=== PATIENT | female | born 1950 | race Caucasian/White ===

== ENCOUNTER 2017-05-29 15:03 | Outpatient (CLI) | payer MEDICARE | END 2017-05-29 15:04 | disposition critical access hospital (66) | LOC: EMS 15:03 | PROVIDERS: ATTEND Surgery | DX: M25.511 Pain in right shoulder (principal); V98.8XXA Other specified transport accidents, initial encounter; Y93.89 Activity, other specified | CPT/HCPCS: A0425; A0429 ==

== ENCOUNTER 2017-05-29 15:36 | Emergency (ER) | payer MEDICARE ==
--- NOTE | 2017-05-29 16:18 | ED Physician Documentation ---
PD HPI UPPER EXT INJURY - Stated complaint Stated Complaint: FALL - Chief complaint Chief Complaint: Ext Problem - History obtained from History obtained from: Patient - History of Present Illness Location: Right, Shoulder Type of injury: Fall (she fell from horse-drawn buggy onto right shoulder.) Timing - onset: Today ([employer]) Timing - details: Abrupt onset, Still present Improved by: Rest Worsened by: Moving, Palpating Review of Systems Cardiac: denies: Chest pain / pressure, Palpitations Respiratory: denies: Dyspnea, Cough GI: denies: Abdominal Pain, Nausea, Vomiting Neurologic: denies: Focal weakness, Numbness, Headache, Head injury PD PAST MEDICAL HISTORY - Past Medical History Musculoskeletal: None - Present Medications Home Medications: Ambulatory Orders Medication Instructions Recorded Confirmed HYDROcod/ACETAM 5/325 [Celina 5/325] 1 tab PO Q6H PRN #25 tablet 05/29/17 Methocarbamol [Robaxin] 500 mg PO Q6H PRN #25 tablet 05/29/17 Naproxen 375 mg PO BID #20 tablet 05/29/17 Ondansetron HCl [Zofran] 4 mg PO Q6H PRN #20 tablet 05/29/17 - Allergies Allergies/Adverse Reactions: Allergies Allergy/AdvReac Type Severity Reaction Status Date / Time Penicillins Allergy Unknown Verified 05/29/17 15:44 PD ED PE NORMAL - Vitals Vital signs reviewed: Yes - General General: Alert and oriented X 3, Well developed/nourished, Other (guarding motion of right arm) - HEENT HEENT: Atraumatic, Pharynx benign - Neck Neck: Supple, no meningeal sign, No bony TTP, No adenopathy - Cardiac Cardiac: RRR, No murmur - Respiratory Respiratory: Clear bilaterally, Other (no chestwall tenderness) - Abdomen Abdomen: Soft, Non tender - Back Back: No CVA TTP, No spinal TTP - Derm Derm: Normal color, Warm and dry - Extremities Extremities: No edema, No calf tenderness / cord, Other (right proximal humerus with swelling and pain on slight ROM. Rest of extremities normal. ) - Neuro Neuro: Alert and oriented X 3, cork wirer 2-12 intact, No motor deficit, No sensory deficit, Normal speech Results - Vitals Vitals: Oxygen O2 Source Room air - Rads (name of study) shoulder Radiology: Prelim report reviewed (proximal humerus fracture with angulation and some displacement. Tubercle fractured too. No dislocation.) PD MEDICAL DECISION MAKING - ED course Complexity details: reviewed results (proximal humerus fracture), considered differential, d/w patient Departure - Departure Disposition: 01 Home, Self Care Clinical Impression: Fall, accidental Qualifiers: Encounter type: initial encounter Qualified Code(s): W19.XXXA - Unspecified fall, initial encounter Proximal humerus fracture Qualifiers: Encounter type: initial encounter Fracture type: closed Fracture morphology: other fracture Fracture alignment: displaced Laterality: right Qualified Code(s) : S42.291A - Other displaced fracture of upper end of right humerus, initial encounter for closed fracture Condition: Stable Record reviewed to determine appropriate education?: Yes Instructions: ED Fx Upper Ext Follow-Up: Kelvin Liz MD [Provider Admit Priv/Credential] - Prescriptions: HYDROcod/ACETAM 5/325 [Celina 5/325] 1 tab PO Q6H PRN #25 tablet PRN Reason: Pain Methocarbamol [Robaxin] 500 mg PO Q6H PRN #25 tablet PRN Reason: Spasms Naproxen 375 mg PO BID #20 tablet Ondansetron HCl [Zofran] 4 mg PO Q6H PRN #20 tablet PRN Reason: Nausea / Vomiting Comments: Sling/shoulder immobilizer for the next 4-6 weeks. Follow-up with orthopedics within the next week, call Wednesday for an appointment time. Naproxen twice a day for inflammation and take it with food. Add Robaxin as needed for muscle spasms and stiffness. Then add Tylenol or hydrocodone as needed for pain. This will tend to hurt a lot for the first several days to week and will decrease as the swelling goes down and it starts to settle into position. Discharge Date/Time: 05/29/17 18:57
[2017-05-29] MEDS ORDERED: IBUPROFEN 600 MG TABLET PO STA (16:30)
[2017-05-29] MEDS ORDERED: HYDROcod/ACETAM 5/325 MG TABLET PO STA (16:30)
[2017-05-29] MEDS ORDERED: HYDROcod/ACETAM 5/325 MG TABLET ONE (16:45)
[2017-05-29] MEDS ORDERED: IBUPROFEN 600 MG TABLET PO ONE (16:45)
--- NOTE | 2017-05-29 17:41 | XRAY Preliminary Report ---
Exam: XR SHOULDER 3 VIEW RT IMPRESSION: Comminuted, displaced proximal humeral fracture. No evidence of dislocation. [facility] SITE ID: [id number]
--- NOTE | 2017-05-29 17:43 | XRAY Report ---
EXAM: RIGHT SHOULDER RADIOGRAPHY EXAM DATE: 05/29/2017 05:32 PM. CLINICAL HISTORY: Fell from horse cart onto right shoulder. COMPARISON: None. TECHNIQUE: 3 views. FINDINGS: Bones: Comminuted, displaced proximal humeral fracture. Joints: The glenohumeral and acromioclavicular joints are normal. Soft tissues: The visualized hemithorax is unremarkable. No soft tissue swelling. IMPRESSION: Comminuted, displaced proximal humeral fracture. No evidence of dislocation. [facility] Referring Provider Line: [phone] SITE ID: [id number]
[2017-05-29] MEDS ORDERED: HYDROcod/ACET 5/325 Prepack 6 PO ONE ×2 (18:04→18:45)
[2017-05-29] MEDS ORDERED: METHOCARBAMOL 500 MG TABLET PO STA (18:05)
[2017-05-29] MEDS ORDERED: ONDANSETRON ODT 4 MG TABLET TL STA (18:27)
[2017-05-29] MEDS ORDERED: ONDANSETRON ODT 4 MG TABLET ONE (18:44)
[2017-05-29] MEDS ORDERED: METHOCARBAMOL 500 MG TABLET PO ONE (18:45)
[2017-05-29 18:55] VITALS: BP 127/78
== END 2017-05-29 18:57 | disposition home or self-care (01) ==
LOC: EDUNIT# → ED 15:36
DX: S42.291A Other displaced fracture of upper end of right humerus, initial encounter for closed fracture (principal); V80.928A Occupant of animal-drawn vehicle injured in other transport accident, initial encounter
CPT/HCPCS: 73030; 99283; 99284; A9270; Q0162